=== PATIENT | male | born 1960 | race African-American/Black ===

== ENCOUNTER 2021-02-27 12:35 | Emergency (ER) | payer OTHER ==
[~2021-02-27] VITALS: Ht 175.3 cm; Wt 105.5 kg
[~2021-02-27 12:35] MED LIST: AMLO-258 PO; ASCO500 PO; ASPI-1444 PO; ATEN-72 PO; ATOR40TA28 PO; CHOL500013 PO; CYCL10 PO; DOCU100T PO; HYDR25TA2 PO; INSU100V SQ; LORA10TA7 PO; LOSA50TA37 PO; METF-960 PO; MULT-1366 PO; ONDA-104 PO; PERCT PO; RIVA10 PO
[2021-02-27] MEDS ORDERED: TAMSULOSIN HCL 0.4 MG CAPSULE PO ONE (14:30)
[2021-02-27 15:40] VITALS: BP 142/100
== END 2021-02-27 15:55 | disposition home or self-care (01) ==
LOC: EMS 12:39
DX: R39.11 Hesitancy of micturition (principal); I48.91 Unspecified atrial fibrillation; E11.9 Type 2 diabetes mellitus without complications; E78.00 Pure hypercholesterolemia, unspecified; I10 Essential (primary) hypertension; Z79.4 Long term (current) use of insulin
CPT/HCPCS: 99283